=== PATIENT | female | born 1935 | race Caucasian/White ===

== ENCOUNTER 2020-10-25 08:02 | Day surgery (SDC) | payer OTHER ==
[~2020-10-25] VITALS: Ht 160 cm; Wt 66.0 kg
[2020-10-25 08:30] VITALS: BP 152/86
[2020-10-25] MEDS ORDERED: albumin 25% 100mL bottle x 1 IV PRN (08:30)
[2020-10-25] MEDS ORDERED: FURO40TA4 PO (08:48)
[2020-10-25] MEDS ORDERED: METO25TA6 PO (08:48)
[2020-10-25] MEDS ORDERED: ALBU90AE2 (08:48)
[2020-10-25] MEDS ORDERED: LEVO50TA8 PO (08:48)
[2020-10-25] MEDS ORDERED: DIGO125T2 PO (08:48)
[2020-10-25] MEDS ORDERED: POTA10TA10 PO (08:48)
[2020-10-25] MEDS ORDERED: IRBE150T24 PO (08:48)
[2020-10-25] MEDS ORDERED: WARF-65 PO (08:48)
[2020-10-25] MEDS ORDERED: ZINC50TA67 PO (08:52)
[2020-10-25] MEDS ORDERED: IPRA3AMP9 IH (08:52)
[2020-10-25] MEDS ORDERED: DICY10CA88 PO (08:52)
[2020-10-25] MEDS ORDERED: LORA-512 PO (08:52)
[2020-10-25] MEDS ORDERED: MULT-1085 PO (08:52)
[2020-10-25 10:00] VITALS: BP 152/86
== END 2020-10-25 10:23 | disposition home or self-care (01) ==
LOC: SSTAY O 08:02
PROVIDERS: ATTEND Radiology Diagnostic Radiology
DX: J90 Pleural effusion, not elsewhere classified (principal); Z53.8 Procedure and treatment not carried out for other reasons; J44.9 Chronic obstructive pulmonary disease, unspecified; I12.9 Hypertensive chronic kidney disease with stage 1 through stage 4 chronic kidney disease, or unspecified chronic kidney disease; N18.9 Chronic kidney disease, unspecified; I25.10 Atherosclerotic heart disease of native coronary artery without angina pectoris; Z20.822 Contact with and (suspected) exposure to COVID-19; Z85.43 Personal history of malignant neoplasm of ovary; Z85.3 Personal history of malignant neoplasm of breast; Z90.49 Acquired absence of other specified parts of digestive tract; Z98.890 Other specified postprocedural states; Z87.891 Personal history of nicotine dependence; Z88.1 Allergy status to other antibiotic agents; Z88.8 Allergy status to other drugs, medicaments and biological substances; Z79.01 Long term (current) use of anticoagulants; Z79.899 Other long term (current) drug therapy; Z82.0 Family history of epilepsy and other diseases of the nervous system
CPT/HCPCS: 36415; 76604; 85610; 87635; C9803